=== PATIENT | female | born 1940 | race Two or more races ===

== ENCOUNTER 2016-06-02 08:40 | Emergency (ER) | payer MEDICARE ==
[2016-06-02] MEDS ORDERED: MECLIZINE HCL 25 MG TABLET ONE (09:24)
--- NOTE | 2016-06-02 09:44 | CT ---
HEAD W/O CON COMPARISON: None HISTORY: Onset of disequilibrium this morning with difficulty walking. Recent upper respiratory infection with sinus pain and pressure. When she turns her head to the side, the symptoms worsen. TECHNIQUE: Using a [employer] [address] scanner, images were obtained through the head. An automated dose reduction technique was used to minimize patient radiation dose. DOSE INFORMATION: CTDIvol (mGy): 51.70 DLP(mGycm): 938.90 FINDINGS: Mass: None Intracranial Hemorrhage: None Acute Infarction: None Cerebral hemispheres: Moderate peripheral atrophy. Basal ganglia: Normal Thalami: Normal Brainstem: Normal Cerebellum: Normal Ventricles: Normal Basilar cisterns: Normal Corpus callosum: Normal Pituitary fossa: Normal Middle ears and mastoid air cells: Normal Orbits and sinuses: Normal orbits. Mucosal thickening fills a single air cell in the right ethmoid sinus. Skull and scalp: Normal Dural sinuses and vessels: Normal IMPRESSION: 1. Mucosal thickening in a single air cell in the right ethmoid sinus. 2. Moderate peripheral atrophy, age-related. No acute intracranial finding. No fluid in the middle ears or mastoid air cells. The report was sent to the emergency department [employer] medical record system, 06/02/2016 at 09:40
[2016-06-02] MEDS ORDERED: ASPIRIN CHEWTAB 81 MG TABLET ONE (09:59)
== END 2016-06-02 11:20 | disposition home or self-care (01) ==
LOC: ED 08:40
DX: R42 Dizziness and giddiness (principal)
CPT/HCPCS: 70450; 99283 ×2; A9270 ×2